=== PATIENT | female | born 1985 | race Caucasian/White ===

== ENCOUNTER 2017-11-28 11:01 | Day surgery (SDC) | payer BC ==
[2017-11-27 11:37] VITALS: BMI 19.9
[2017-11-28 12:53] LABS: HEMOGLOBIN 13.8 g/dL (12.0-16.0); MEAN CELL VOLUME 82.8 fl (81.0-99.0); MEAN CORPUSCULAR HEMOGLOBIN 26.7 pg (27.0-31.0); MEAN CORPUSCULAR HGB CONC 32.2 g/dL (33.0-37.0); RBC 5.16 Mil/uL (3.80-5.20); RED CELL DISTRIBUTION WIDTH 13.5 % (11.5-14.5); WHITE BLOOD COUNT 9.3 K/uL (4.8-10.8)
[2017-11-28] MEDS ORDERED: Lidocaine 4% (Laryng-O-Jet) Kit MM ONE (13:53)
[2017-11-28] MEDS ORDERED: Rocuronium 10 mg/ml (5 ml) ONE (13:53)
[2017-11-28] MEDS ORDERED: Propofol 10 mg/ml Inj (20 ML) ONE (13:53)
[2017-11-28] MEDS ORDERED: Succinylcholine 200 mg/10 ml Inj IV ONE (13:56)
[2017-11-28] MEDS ORDERED: Phenylephrine 10 mg/ml Inj ONE (13:59)
[2017-11-28] MEDS ORDERED: Silver Nitrate Topical - Stick ONE (14:02)
[2017-11-28] MEDS ORDERED: Sevoflurane - Inhalation Anesthetic Liq (250 ml) ONE (14:04)
[2017-11-28] MEDS ORDERED: Midazolam 2 MG/2 ML VIAL ONE (14:51)
[2017-11-28] MEDS ORDERED: Lactated Ringer's 1,000 ML IV ONE ×3 (14:55→17:08)
[2017-11-28] MEDS ORDERED: Bupivacaine 0.25% Inj(30mL) IJ ONE ×2 (15:33)
[2017-11-28] MEDS ORDERED: Neostigmine 1:1000 (1 mg/ml) Inj ONE (16:50)
[2017-11-28] MEDS ORDERED: Oxycodone/Acetaminophen 5/325 mg Tab PO PRN (17:10)
[2017-11-28] MEDS ORDERED: HYDROmorphone 0.5 mg/0.5 ml ISec IVP PRN (17:13)
[2017-11-28] MEDS ORDERED: Lactated Ringer's 1,000 ML IV SCH ×2 (17:15)
[2017-11-28] MEDS ORDERED: Dexamethasone 4 mg/1 ml IVP PRN (18:27)
[2017-11-28 22:09] VITALS: RESP 18
[2017-11-28 22:10] VITALS: BP 101/67; PULSE 81; TEMP 98.5; O2SAT 100
--- NOTE | 2017-12-02 11:59 | PCM.OP ---
Operative Report - Operative Report Date of Surgery/Procedure: 11/28/17 Time of Surgery/Procedure: 10:00 Surgeon: Dr. Hermilo Gill Hospice Director: Dr. Eren Herrera Anesthesia/Sedation: general/Dr. Savage Pre-Operative Diagnosis: abdominal pain and endometriosis Post-Operative Diagnosis: same Indication for Surgery: as above Operative Findings: as above Procedure/Operation Description: 1-Excision of perirectal endometriosis. 2- Appendectomy. Brief Histroy: This 32 year old woman was brought to the operating room by Dr. Herrera for chronic pain from endometriosis. Durng the course of the operation he noted intestnal involvement and required a general surgery consultation. Description of the Procedure: Dr. Javier dunham already initiated the procedure (separate dictation). After taking control of the robotic console the rectal lesions were examined by videoscopy and the first rectal lesion was circumscribed circumferentially with the aid of electrocautery and was then removed en-bloc with blunt and sharp dissection. This first specimen was snet to pathology separately. the second rectal lesion, more distal, was removed in a similar fashion and sent to pathology separately. Once completed our attentioin turned to the veriform appendix. With anterior traction of the appendix the nesentery was dessicated with electrocaurtery with particular attention to the appedniceal artery. The dissection was completed to the base. Three lopped 3-0 vicryl were used to ligate the appendix. It was then trassected and sent to apthology as a separate specimen. The operation was then turned over to Dr. Herrera (separate dictation). Estimated Blood Loss: 5 cc Complications: none Discharge & Condition: stable
--- NOTE | 2017-12-12 19:58 | OP ---
PROCEDURE DATE: 11/28/2017 SURGEON: Eren Herrera M.D. LEVEL DESIGNER: Hermilo Gill M.D. ANESTHESIA: General endotracheal. PREOPERATIVE DIAGNOSES: 1. Incapacitating pelvic pain. 2. Incapacitating abdominal pain. 3. Abnormal uterine bleeding. 4. History of pelvic endometriosis. 5. History of previous failed medical surgical therapy. 6. History of severe endometriosis and pelvic adhesions. 7. Gastrointestinal and genitourinary symptoms. 8. Rule out interstitial cystitis. 9. Adenomyosis. POSTOPERATIVE DIAGNOSES: 1. Incapacitating pelvic pain. 2. Incapacitating abdominal pain. 3. Abnormal uterine bleeding. 4. History of pelvic endometriosis. 5. History of previous failed medical surgical therapy. 6. History of severe endometriosis and pelvic adhesions. 7. Gastrointestinal and genitourinary symptoms. 8. Mild Bilateral Hydroureters 9. Adenomyosis. 10. Severe pelvic endometriosis. 11. Ovarian adhesions. 12. Bowel adhesions. 13. Subseptate uterus. OPERATION PERFORMED: 1. Examination under anesthesia. 2. Video-assisted hysteroscopy. 3. Hysteroscopic septoplasty. 4. Robotic da Dahlia laparoscopy. 5. Enterolysis. 6. Bilateral ureterolysis. 7. Bilateral salpingo-ovariolysis. 8. Multiple peritoneal biopsies and excision of endometriosis. 9. Treatment of endometriosis. 10. Shaving of endometriosis of the bowel. 11. Cystoscopy. 12. Bilateral ureteral catheterization and injection of IC-Green dye. FINDINGS: Genitalia normal, external genitalia, cervix normal without lesions or polyps. Hysteroscopy showed evidence of a small septum of the fundus of the uterus and no other lesions visualized. Cystoscopy was performed to rule out endometriosis of bladder mucosa and also interstitial cystitis, also injury. The bladder was normal with no evidence of stone, trigonitis or cystitis. Positive jet flow visualized in both ureters. Laparoscopy upper abdomen was normal, gallbladder was normal, liver edges appeared to be normal. Ascending colon and transverse were normal. The appendix appeared to be abnormal with both fibrosis and thickening. There was evidence of severe adhesions, fibrosis and endometriosis of the rectovaginal septum and attachment of the bowel to the posterior aspect of the uterus and to both the right and left adnexa. Both ovaries were severely attached to the posterior aspect of the ureters with endometriosis and adhesions. Fallopian tubes appeared to have some inflammatory changes of adhesions, but overall appeared to be normal. Both ovaries appeared to be involved with scar. There was also evidence of endometriosis of the rectovaginal septum in right and left perirectal areas and mild Fibrosis of both ureters, posterior cul-de-sac and anterior cul-de-sac. There was also evidence of severe retroperitoneal fibrosis in this area. There was also evidence of mild bilateral hydroureters. CONSENT: The patient had been thoroughly evaluated and counseled regarding pros and cons of the procedure, the reasonable alternative, and the possible complications. She understood and accepted the risks involved. Appropriate literature was provided to the patient. The patient was in understanding that given her history and presurgical exam, she knows that she was a high risk and average patient. She accepted all the risks involved and all the questions had been answered to her satisfaction. DESCRIPTION OF PROCEDURE: Initiation of the case: After adequate anesthesia was obtained, the patient was placed in the dorsal lithotomy position with extreme care of placement of the patient without hyperextension or hyperflexing the hips. At this point, the patient was prepped and draped, the surgeon was gowned and gloved. A time-out was taken according to the hospital procedure and the procedure was started. At this point, we performed the cystoscopy and bilateral ureteral catheterization. A cystoscope was inserted into the bladder, under direct visualization and the bladder was visualized. The bladder was free of lesions, tumors. There was no evidence of interstitial cystitis, and there was only a mild amount of trigonitis. At this point, both ureters were identified and appeared to be in normal anatomical position. At this point, utilizing an open-ended 5-Polish catheter, the left ureter was catheterized all the way to the distal ureter, and a 5 mL of IC-Green were injected into the distal ureter. Similarly, on the contralateral ureter, the ureter was catheterized all the way to the distal ureter, and a 5 mL of IC-Green were injected into the distal ureter. At this point, the stents were removed, and the hysteroscope was removed and a 16-Polish Jeffrey was placed into the bladder. At this point, we proceeded with a hysteroscopy. A speculum was placed in the vagina, and the anterior lip of the cervix was grasped. The cervix was dilated and a hysteroscope was inserted into the cavity. The cavity appeared to be of normal size, but there was evidence of a subseptum at the top of the uterus. At this point, we proceeded with excision of uterine septum. Once the septum was identified, the endoscopic scissors were inserted into the uterine cavity and a progressive dissection of the septum was performed with great care not to perforate the uterus and not to cause any bleeding. The procedure was basically bloodless and the septum was excised. At this point, we proceeded with placement of the trocars and docking of the da Dahlia Xi robot. The surgeons were regowned and regloved, and an open laparoscopy was performed by making an incision below the umbilicus, and the fascia was incised, and the peritoneum was entered in the blunt fashion. The cannula was inserted and the abdomen was insufflated, and under direct visualization 3 additional ports were inserted, left upper quadrant, left mid quadrant and right upper quadrant. At this point, the da Dahlia Xi robot was brought into the field and docked, and the instruments were inserted under direct visualization. With extreme care not to injure the bowel or any other area. As per the description above , the upper abdomen appeared to be normal with no evidence of any lesions. The pelvis had the findings described above, which included significant adhesions, fibrosis of the posterior cul-de-sac, significant endometriosis with deep endometriosis nodules. Both ovary adherent to both the ovarian fossas and the posterior aspect of the uterus with significant inflammatory changes. At this point, we proceeded with the left ureterolysis. The left ureter appeared to dilated and it was clearly identified utilizing fluorescent technology. An incision was made on the peritoneum at the top of the pelvic brim, and incision was then carried down all the way opening the peritoneum and all the way down from the pelvic brim all the way down to the ovarian fossa extending the incision below the ovary. It was a progressive dissection where the ureter was progressively lateralized and the peritoneum medialized, thus freeing the ureter all the way down to the crossing of the uterine vessels. After this was done and the ureter was freed and lateralized and a large area of peritoneum, which had been opened up was excised and sent to pathology. At this point, we proceeded with the left ovariolysis . At this point, after ureter had been identified, we were able to elevate the ovary and dissect it from the left pelvic side wall in the left ovarian fossa, and at this point, we proceeded with the ovariolysis. The ovary was gently dissected and elevated off the ovarian fossa and area of fibrosis of endometriosis were exposed. At this point, we proceeded with the right ureterolysis. The right ureter was identified and again utilizing florescent technology, the retroperitoneal space was entered and a full dissection was performed entering the retroperitoneal space and dissecting the ureter, removing the ureter laterally and the peritoneum medially. A full dissection was performed all the way down to the ovarian fossa, on the crossing of the uterine arteries. A large area of peritoneum containing endometriosis was also dissected and sent to Pathology. At this point, we proceeded with a right ovariolysis. The right ovary was progressively elevated, areas of deep endometriosis and superficial endometriosis were dissected out and the ovary was finally elevated. At this point, we proceeded with a treatment of endometriosis and excision of endometriosis. On the left hand side, a large area of peritoneum, where containing endometriosis was excised in the left ovarian fossa with the upper margin of the excision at the utero-ovarian ligament all the way down to the uterosacral ligament. Large areas of fibrosis were identified in posterior cul-de-sac and the rectovaginal space was affected with endometriosis and severe fibrosis. The rectovaginal area was then dissected and the space was opened, and we were able to dissect the rectum away from the posterior aspect of the cervix. Additional areas of endometriosis were dissected from the posterior aspect of the Uterus. At this point, we proceeded with excision of the endometriosis on the right hand side where similarly in a full excision of endometriosis was performed by performing incision from starting at the right utero-ovarian ligament all the way down to the right uterosacral ligament. At this point, Dr. Gill from General Surgery was called in and he performed an excision of rectal endometriosis, which she will dictate separately. At this point, it was checked for hemostasis and appeared to be excellent. All the endometriosis had been excised. At this point, we performed the ablation of inflamed peritoneum, utilizing the J-plasma device. There were inflammatory areas in the posterior aspect of the uterus, which were not endometriotic, but they were purely inflammatory and these were not excisable, as they were not endometriotic. Therefore, we proceeded with ablation of such area utilizing the J plasma. Once this was done, it was checked for hemostasis and appeared to be excellent. The robotic console was handed to Dr. Gill, who performed the appendectomy and he will dictate that separately. After this was done, it was checked for hemostasis and appeared to be excellent. The pelvis was irrigated. The da Dahlia Xi robot was removed. The abdomen desufflated. The instruments were removed. The incisions were closed in layers with 0 PDS for the fascia and 4-0 Monocryl for the skin. The patient was awakened up and taken to recovery room in excellent condition. Eren Herrera MD MTDD
== END 2017-11-28 22:10 | disposition home or self-care (01) ==
LOC: H.OPSURG 11:01 → H.MEDSURG1 20:11 → H.OPSURG 22:10
PROVIDERS: ATTEND Obstetrics & Gynecology Reproductive Endocrinology
DX: N93.9 Abnormal uterine and vaginal bleeding, unspecified (principal); N80.1 Endometriosis of ovary; N80.0 Endometriosis of uterus; N80.5 Endometriosis of intestine; N80.3 Endometriosis of pelvic peritoneum; K38.0 Hyperplasia of appendix; N73.6 Female pelvic peritoneal adhesions (postinfective); K66.0 Peritoneal adhesions (postprocedural) (postinfection); N13.4 Hydroureter
CPT/HCPCS: 36415; 44970; 45999; 52332; 53899; 58563; 58662; 85027; 86850; 86900; 88304; 88305; C1729; J0131; J0330; J0690; J1100; J1170; J1885; J2001; J2250; J2370; J2405; J2704; J2710; J2765; J3010; J7030; J7120